=== PATIENT | male | born 1985 | race Caucasian/White ===

== ENCOUNTER → 2018-04-26 | Day surgery (SDC) | payer OTHER ==
[~2018-04-26] MED LIST: BUPIVACAINE 0.25% 30ML SDV INJ ONE; CEFAZOLIN SOD 1 GM/D5W 50ML 50 ML IV ONE; DEXAMETHASONE SOD PHOS INJ 4 MG/ML VIAL ONE; FENTANYL CITRATE/PF 100MCG/2 ML INJ ONE; LIDOCAINE HCL 2% JELLY 5 ML TUBE ONE; LIDOCAINE HCL 2% LOCAL INJ 5 ML SDV VIAL INJ ONE; MIDAZOLAM HCL 2 MG/2 ML VIAL ONE; ONDANSETRON HCL INJ 2 MG/ML VIAL ONE; PROPOFOL IV EMULSION 10 MG/ML 20 ML VIAL ONE; SEVOFLURANE INHAL SOLN 250 ML PEN BTL ONE
[2018-04-26 10:50] VITALS: BP 114/74
--- NOTE | 2018-04-28 17:49 | Operative Report ---
DATE OF PROCEDURE: April 26, 2018 PREOPERATIVE DIAGNOSIS: Bilateral sterilization. POSTOPERATIVE DIAGNOSIS: Bilateral sterilization. OPERATION PERFORMED: Bilateral vasectomy. ANESTHESIA: General. ESTIMATED BLOOD LOSS: Minimal. COMPLICATIONS: None. INDICATIONS: Mr. Peters is a very pleasant 32-year-old male who has multiple children who elected to undergo vasectomy. He voiced understanding of the options, alternatives, risks and benefits and elected to proceed. DETAILS OF PROCEDURE: After informed consent was obtained, the patient was taken to the operative suite, placed supine on the operating table, and underwent general anesthesia by the anesthesia service. He was placed in supine position. Of note, there were bilateral varicoceles. Attention was turned to the left hemiscrotum. After time-out was taken, the patient was prepped, the left vas was palpated to the level of the skin. Incision was made above this. The vas was then delivered. The PERIVAS vessels were stripped. This was then doubly hemostatically clipped both proximally and distally and segment of the vas was excised and passed off the table as specimens The process was repeated on the contralateral side. Patient tolerated the procedure well. Minimal blood loss. The wounds were then closed with interrupted 4-0 chromic gut stitch. Wounds were dressed. The patient was awakened from anesthesia and transported to the recovery room in excellent condition with no untoward effects noted. All sponge and instrument counts correct x 2 Job#: [id number] SHIRLEYU [id number]
== END | disposition home or self-care (01) ==
LOC: OR 06:45
PROVIDERS: ATTEND Urology
DX: Z30.2 Encounter for sterilization (principal)
CPT/HCPCS: 55250; 88302; J0690; J1100; J2001 ×2; J2250; J2405; J2704